=== PATIENT | male | born 1980 ===

== ENCOUNTER 2017-09-08 19:00 | Emergency (ER) | payer OTHER ==
[2017-09-08 19:07] VITALS: BP 137/84; PULSE 78; RESP 16; TEMP 98.2; O2SAT 99
--- NOTE | 2017-09-08 19:42 | ED PDOC ---
HPI: Abdomen Time Seen by Provider: 09/08/17 19:07 Chief Complaint (Nursing): Abdominal Pain History Per: Patient History/Exam Limitations: language barrier (Putter In present in room) Onset/Duration Of Symptoms: Days Current Symptoms Are (Timing): Intermittent Episodes Severity: Severe Pain Scale Rating Of: 8 Location Of Pain/Discomfort: LLQ Quality Of Discomfort: Sharp Associated Symptoms: denies: Fever, Nausea, Vomiting, Diarrhea, Constipation, Urinary Symptoms Exacerbating Factors: None Alleviating Factors: None Last Bowel Movement: Today Additional Complaint(s): CC: "abdominal pain" HPI: 37 YO Male with no sig PMH presents to [facility] ED for abdominal pain. Pt states that the pain started suddenly last night, located in his LLQ. Pain is describes as sharp in nature and episodic. There is no radiation of the pain and has remain the same intensity since it started. Pain is rated as a 8/10, mild improvement with Tylenol and Baclofen. No exacerbating factors. Pt took a tylenol, a baclofen and an antibiotic earlier today (that he had from [facility]). Denies similar episode in the past, no n/v/d/c, dysuria, urinary frequency, no penile discharge and no hx or recent trauma. Last BM was this morning, and normal in consistency, brown in color, no blood noted. No hx of diarrhea or constipation. Of note, pt is [place] speaking. Putter In in room. Last visit to a doctor was 5 yrs ago. PMH: denies SurgHx: denies SH: denies smoking, ETOH and illicit drug use FH: Hx of DM in maternal and paternal side of family Meds: Tylenol prn Allergies: NKDA Past Medical History Vital Signs: Last Vital Signs Temp 98.2 F 09/08/17 19:05 Pulse 78 09/08/17 19:05 Resp 16 09/08/17 19:05 BP 137/84 09/08/17 19:05 Pulse Ox 99 09/08/17 21:19 - Medical History PMH: No Chronic Diseases - Surgical History Surgical History: No Surg Hx - Family History Family History: States: Diabetes - Living Arrangements Living Arrangements: With Family - Social History Current smoker - smoking cessation education provided: No Ex-Smoker (has not smoked in the last 12 months): No Alcohol: None Drugs: Denies - Home Medications Home Medications: Ambulatory Orders Medication Instructions Recorded Naproxen 500 mg PO Q6 #20 tab 09/08/17 - Allergies Allergies/Adverse Reactions: Allergies Allergy/AdvReac Type Severity Reaction Status Date / Time No Known Allergies Allergy Verified 09/08/17 19:05 Review of Systems Constitutional: Negative for: Fever, Chills, Weight loss Eyes: Negative for: Vision Change Cardiovascular: Negative for: Chest Pain, Palpitations Respiratory: Negative for: Cough, Shortness of Breath Gastrointestinal: Positive for: Abdominal Pain (LLQ). Negative for: Nausea, Vomiting, Diarrhea, Constipation Genitourinary Male: Negative for: Dysuria, Frequency Neurological: Negative for: Weakness, Numbness Psych: Negative for: Anxiety, Depression Physical Exam - Physical Exam Appears: Positive for: Well, No Acute Distress Head Exam: Positive for: ATRAUMATIC, NORMAL INSPECTION, NORMOCEPHALIC Skin: Positive for: Normal Color, Warm, Dry Eye Exam: Positive for: Normal appearance, EOMI Neck: Positive for: Normal Cardiovascular/Chest: Positive for: Regular Rate, Rhythm. Negative for: Murmur Respiratory: Positive for: Normal Breath Sounds. Negative for: Wheezing Gastrointestinal/Abdominal: Positive for: Bowel Sounds, Soft, Tenderness (To palpation of the LLQ). Negative for: Mass, Distended, Rebound Back: Negative for: L CVA Tenderness, R CVA Tenderness Extremity: Positive for: Normal ROM Neurologic/Psych: Positive for: Alert, Oriented - Laboratory Results Result Diagrams: 09/08/17 19:40 09/08/17 19:40 - ECG O2 Sat by Pulse Oximetry: 99 - Progress ED Course And Treament: 37 YO male with no PMH presents to ED for LLQ pain x 1 day. -CBC -CMP -UA -CT abdomen with IV contrast -IV fluids CBC sig for leukocytosis 12.5, pt remains afebrile, asymptomatic. CMP and UA wnl CT abdomen with IV contrast IMPRESSION: 1. 3 cm enhancing lesion in the posterior segment right hepatic lobe, possibly a cavernous hemangioma or FNH but incompletely characterized on this exam. Multiphase contrast enhanced MRI could be performed if indicated. 2. Tiny stones in the gallbladder neck. Gallbladder otherwise unremarkable. 3. Tubular shape collection of fat with surrounding inflammation anterior to the sigmoid colon consistent with epiploic appendagitis. Disposition - Clinical Impression Clinical Impression: Abdominal pain - Disposition Referrals: [facility] [Outside] Disposition Time: 21:18 Condition: STABLE Additional Instructions: Please come back to ED if pain persists or worsens With fever over 100.4 with tylenol Prescriptions: Naproxen 500 mg PO Q6 #20 tab Instructions: Diverticulosis (ED), Abdominal Pain (ED) Forms: [employer] (Danish)
[2017-09-08] MEDS ORDERED: Sodium Chloride 0.9% 1,000 ML IV STA (19:43)
[2017-09-08] MEDS ORDERED: Sodium Chloride 0.9% 1,000 ML IV SCH (19:45)
[2017-09-08 19:49] LABS: BASO # 0.1 K/uL (0.0-0.2); BASO % 0.9 % (0.0-2.0); EOS # 0.5 K/uL (0.0-0.7); EOS % 3.9 % (0.0-4.0); HEMATOCRIT 45.3 % (35.0-51.0); LYMPH # 3.8 K/uL (1.0-4.3); LYMPH % 30.4 % (20.0-40.0); MEAN CELL VOLUME 83.8 fl (80.0-94.0); MEAN CORPUSCULAR HEMOGLOBIN 28.3 pg (27.0-31.0); MEAN CORPUSCULAR HGB CONC 33.8 g/dL (33.0-37.0); MEAN PLATELET VOLUME 8.2 fl (7.2-11.7); MONO # 0.8 K/uL (0.0-0.8); MONO % 6.3 % (0.0-10.0); NEUT # 7.3 K/uL (1.8-7.0); NEUT % 58.5 % (50.0-75.0); NRBC % 0.2 % (0.0-0.0); RED CELL DISTRIBUTION WIDTH 13.5 % (11.5-14.5); WHITE BLOOD COUNT 12.5 K/uL (4.8-10.8)
[2017-09-08 19:59] LABS: ALB/GLOB RATIO 1.2 (1.0-2.1); ALKALINE PHOSPHATASE 81 U/L (38-126); ALT/SGPT 38 U/L (21-72); AST/SGOT 23 U/L (17-59); BILIRUBIN,TOTAL 0.4 mg/dl (0.2-1.3); BLOOD UREA NITROGEN 19 mg/dl (9-20); CALCIUM 9.1 mg/dL (8.4-10.2); CARBON DIOXIDE 29 mmol/L (22-30); CHLORIDE 102 mmol/L (98-107); GFR AFRICAN-AMERICAN > 60; GLUCOSE,RANDOM 96 mg/dL (75-110); POTASSIUM 4.5 MMOL/L (3.6-5.0); SODIUM 139 mmol/l (132-148); TOTAL PROTEIN 8.1 G/DL (6.3-8.2)
[2017-09-08] MEDS ORDERED: Iohexol 300 100 ML IJ ONE (20:03)
[2017-09-08] MEDS ORDERED: Sodium Chloride 0.9% 50 ML IV ONE (20:04)
--- NOTE | 2017-09-10 08:27 | CT ---
PROCEDURE: CT Abdomen and Pelvis with contrast HISTORY: Left lower quadrant pain COMPARISON: None. TECHNIQUE: Contrast dose: Cc Omnipaque 300 Radiation dose: Total exam DLP = 1341.72 mGy-cm. This CT exam was performed using one or more of the following dose reduction techniques: Automated exposure control, adjustment of the mA and/or kV according to patient size, and/or use of iterative reconstruction technique. FINDINGS: LOWER THORAX: Unremarkable. LIVER: Contrast-enhancing mass in the right hepatic lobe consistent with flash hemangioma. GALLBLADDER AND BILE DUCTS: Cholelithiasis without CT evidence of acute cholecystitis. PANCREAS: Unremarkable. No gross lesion or ductal dilatation. SPLEEN: Unremarkable. ADRENALS: Unremarkable. No mass. KIDNEYS AND URETERS: Unremarkable. No hydronephrosis. No solid mass. VASCULATURE: Unremarkable. No aortic aneurysm. BOWEL: Inflammatory changes limited to the fat at the level of the junction of the descending colon and sigmoid the overall appearance consistent with epiploic appendagitis. APPENDIX: Normal appendix. PERITONEUM: Unremarkable. No free fluid. No free air. LYMPH NODES: Unremarkable. No enlarged lymph nodes. BLADDER: Unremarkable. REPRODUCTIVE: Unremarkable. BONES: No acute fracture. OTHER FINDINGS: None. IMPRESSION: Findings consistent with epiploic appendagitis descending colon. Cholelithiasis without CT evidence of acute cholecystitis. Contrast-enhancing masses in the liver 3.5 x 3 cm likely flash hemangioma.
== END 2017-09-08 21:38 | disposition home or self-care (01) ==
LOC: H.ER 19:00
DX: K57.90 Diverticulosis of intestine, part unspecified, without perforation or abscess without bleeding (principal)
CPT/HCPCS: 74177; 80053; 85025; 99282; J7040; Q9967